=== PATIENT | female | born 1990 | race Caucasian/White ===

== ENCOUNTER 2019-08-08 19:20 | Emergency (ER) | payer MEDICAID ==
[~2019-08-08] VITALS: Ht 154.9 cm; Wt 69.9 kg
[2019-08-08 19:42] VITALS: BP 112/67
--- NOTE | 2019-08-08 20:33 | NUR ---
C-collar placed-placed in full spinal precautions Ua collected and sent to lab to CT scan at
[2019-08-08 21:03] LABS: CULTURE INDICATED? YES; MICROSCOPIC INDICATED
--- NOTE | 2019-08-08 21:21 | NUR ---
C-collar removed remains with no neuro deficits with reassessment
[2019-08-08] MEDS ORDERED: ACETAMINOPHEN 325 MG TABLET ONE (21:40)
[2019-08-08] MEDS ORDERED: ACETAMINOPHEN 325 MG TABLET PO ONE (22:00)
== END 2019-08-08 22:01 | disposition home or self-care (01) ==
LOC: ED 20:03
DX: S16.1XXA Strain of muscle, fascia and tendon at neck level, initial encounter (principal); S20.212A Contusion of left front wall of thorax, initial encounter; N30.00 Acute cystitis without hematuria; F17.200 Nicotine dependence, unspecified, uncomplicated; V43.52XA Car driver injured in collision with other type car in traffic accident, initial encounter; Y93.89 Activity, other specified; Y92.488 Other paved roadways as the place of occurrence of the external cause; Y99.8 Other external cause status
CPT/HCPCS: 72020; 72050; 81001; 87086; 99284